=== PATIENT | male | born 1975 | race Caucasian/White ===

== ENCOUNTER 2017-03-11 09:06 | Inpatient (IN) | payer OTHER ==
[~2017-03-11] VITALS: Ht 175.3 cm; Wt 93.2 kg
--- NOTE | ~2017-03-11 | INDIVTXPL2 ---
"PATIENT: ANDRE MOSQUERA | | [facility] UNIT #: [id number] | [address] AGE/SEX: 41 M : 75 | [address] | [place] [address] ADMIT/REG DATE: 03/11/17 | ROOM: [facility] LOC: ADTC | ADTC | Individualized Treatment Plan DATE: 03/18/17 Problem Statement/Issue Identified: Client is experiencing family discord and distancing as a result of past alcohol & drug usage. Goal: To assist client in recognizing the distancing between him and his family due to his drug use. Objectives/Activities to achieve goal: 1. Client will complete a Feelings packet and process insight with counselor and selected pages in group. Due Date: 04/02/17 Complete: Incomplete: 2. Client will write a Feelings letter to his brother and [id number] and process with counselor and in group. family education. Due Date: 04/02/17 Complete: Incomplete: 3. Client will attend family education with his brother learning about the disease concept and family roles and share what he learned with his counselor. Due Date: 04/02/17 Complete: Incomplete: Client Signature Date Counselor Signaure: Date Outcome/Measurement of Progress Towards Goal: Counselor Signature: Date "
--- NOTE | ~2017-03-11 | INDIVTXPL2 ---
"PATIENT: ANDRE MOSQUERA | | [facility] UNIT #: [id number] | [address] AGE/SEX: 41 M : 75 | [address] | [place] [address] ADMIT/REG DATE: 03/11/17 | ROOM: [facility] LOC: ADTC | ADTC | Individualized Treatment Plan DATE: 03/18/17 Problem Statement/Issue Identified: Client needs to become familiar with basics of recovery as he/she is new to treatment and Twelve Step Program. Goal: To assist client in gaining a better knowledge of his powerlessness over his disease. Objectives/Activities to achieve goal: 1. Client is to complete his Getting Started in Treatment packet where he will identify specific events and behaviors that have contributed to his decision to seek treatment and how his addiction has progressed over the years which he will share with his counselor and selected pages in group. Due Date: 03/23/17 Complete: Incomplete: 2. Client will complete Step 1, which will identify core values he has compromised in his addiction and share with his counselor and selected pages in group. Due Date: 03/23/17 Complete: Incomplete: 3. Client is to attend AA/NA meetings, ask for and get at least 5 names and numbers of men in recovery, helping him build a support system and gain a possible sponsor, and share that list with his sponsor. Due Date: Complete: Incomplete: Client Signature Date Counselor Signaure: Date Outcome/Measurement of Progress Towards Goal: Counselor Signature: Date "
--- NOTE | ~2017-03-11 | TXPLANREV ---
"PATIENT: ANDRE MOSQUERA | | [facility] UNIT #: [id number] | [address] AGE/SEX: 41 M : 75 | [address] | [place] [address] ADMIT/REG DATE: 03/11/17 | ROOM: [facility] LOC: ADTC | ADTC | Treatment Plan/Staffing Review Date: 04/01/17 Treatment plan was reviewed and determined appropriate as written: yes Treatment plan was reviewed and the following changes/addition/deletions are necessary: Client was assigned Shame Faced and Relapse Prevention Discharge plans were reviewed and determined appropriate as previously documented: yes Discharge plans were reviewed and determined to be as follows: Client will be going back to [place] and possibly living with his brother. He will return to [facility] for counseling. Other pertinent issues discussed during this staffing review include: None Staff Present: Kun Logan PRIMARY COUNSELOR: Mariela Chang Client Signature Counselor Signature Date Time "
--- NOTE | ~2017-03-11 | TXPLANREV ---
"PATIENT: ANDRE MOSQUERA | | [facility] UNIT #: [id number] | [address] AGE/SEX: 41 M : 75 | [address] | [place] [address] ADMIT/REG DATE: 03/11/17 | ROOM: [facility] LOC: ADTC | ADTC | Treatment Plan/Staffing Review Date: 03/25/17 Treatment plan was reviewed and determined appropriate as written: yes Treatment plan was reviewed and the following changes/addition/deletions are necessary: Client was given a Feelings packet and assigned feelings letter to his brother. Client was also given the booklet I Can't Be Addicted Because..... Discharge plans were reviewed and determined appropriate as previously documented: yes Discharge plans were reviewed and determined to be as follows: Client has filled out applications and signed release forms for [email or web address], and [facility]. Other pertinent issues discussed during this staffing review include: None Staff Present: Deb Gomez Lori C PRIMARY COUNSELOR: Mariela Chang Client Signature Counselor Signature Date Time "
--- NOTE | ~2017-03-11 | CLPRLASSUM ---
"PATIENT: ANDRE MOSQUERA | | [facility] UNIT #: [id number] | [address] AGE/SEX: 41 M : 75 | [address] | [place] [address] ADMIT/REG DATE: 03/11/17 | ROOM: [facility] LOC: ADTC | ADTC | Client Problem List/Assessment Summary Date: 03/18/17 Problems identified by the client: his drug use became unmanageable which led him to being placed on probation. Problems identified by significant others: n/a Client's Strengths: hardworker, kind, Problem List: Code: T Client needs to become familiar with basics of recovery as he is new to treatment and Twelve Step Program. Code: T Client is experiencing family discord and distancing as a result of past alcohol & drug usage. Code: T Client is easily influenced by peers and needs to learn to take a stand for responsible behavior to avoid relapse. Code: T Client needs to identify relapse warning signs and develop a plan to deal with them as they arise. Code [place]: T: to be addressed during course of treatment O: problem noted, expected to resolve itself with abstinence--specific tx plan not required R: problem noted, will be referred upon discharge PRIMARY COUNSELOR: Mariela Chang"
--- NOTE | ~2017-03-11 | RESCARESUM ---
"PATIENT: ANDRE MOSQUERA | | [facility] UNIT #: [id number] | [address] AGE/SEX: 41 M : 75 | [address] | [place] [address] ADMIT/REG DATE: 03/11/17 | ROOM: [facility] LOC: ADTC | ADT | Summary of Residential Care Primary [facility] Date of Admission: 03/12/17 Date of Discharge: 04/13/17 Referral Source: probation Primary Care Provider Prior to Admission: self Admitting Diagnosis: F12.20 Cannabis Use Disorder, severe; F15.20 Stimulant Use Disorder, mild; F17.20 Nicotine Dependence; Chemical-Induced mood disorder all per history and physical. Discharge Diagnosis: same as above Goals Achieved: Client verbalized understanding of the severity of his powerlessness and unmanageability related to his substance use. He practiced identifying and appropriately expressing his feelings. Client began to work on relapse and prevention plan. Continued Obstacles to Sobriety/Relapse Issues: Client goes back and forth with thinking that he may have a drug and alcohol problem and that he does not have any problems with any type of substance. Client is mostly concerned about not having a family or at his age. Family Issues Addressed: Client's brother attended a night of family education and client attended Thursday night of education. Y Individual Therapy Y Group Therapy Y Educational Series on Substance Abuse Y Parents/Significant Others Attended Family Program N Acute Medical Problems During the Course of Treatment N Transferred to Hospital During the Course of Treatment T Accepting of Substance Abuse Problem N Non-accepting of Substance Abuse Problem N Required Psychological or Psychiatric Consultation During the Course of Treatment Completed AA Step # 1 During This Level of Care Significant Incidences During Treatment: None Reason For Discharge: Y Completed Residential TX Goals and Ready For Next Level of Care N Left Tx Against Medical Advice/Treatment Goals Not Complete N Completed Residential Tx Goals But Refusing Continuing Care Recommendations N Discharged Due to Noncompliance/Treatment Goals not Completed N Discharged Earlier Than Planned Due to: PATIENT: ANDRE MOSQUERA | | [facility] UNIT #: [id number] | [address] AGE/SEX: 41 M : 75 | [address] | [place] [address] ADMIT/REG DATE: 03/11/17 | ROOM: [facility] LOC: ADTC | ADTC | Summary of Residential Care Continuing Care Plan/Recommendations: N Intensive Partial Care Y Sponsor N Partial Care Y AA Meetings/NA Meetings Y Outpatient N Co-dependency Services N Therapeutic Community Y [facility] [facility] [address] N Mental Health Therapy N Marriage Counseling N Other Specific Continuing Care Plan: It is recommended that client check into [facility] at discharge and follow all rules and regulations of the house. Client should attend individual counseling at the [facility] and all scheduled activites and groups. Client is recommended to attend 3-4 NA/AA meetings and work a strong program in recovery. PRIMARY COUNSELOR: Mariela Chang"
--- NOTE | 2017-03-11 09:53 | NUR ---
Gus notes: Client is working on Selfworth and mtg with catherine
--- NOTE | 2017-03-11 11:04 | NUR ---
ADMISSION NOTE Rights/Responsibilities: Copy given and explained to client. Signed and accepted by client. Client oriented to physical lay out of the ADTC unit, given Big Book and admission packet. A Trevor was assigned. Kevin Berry Client is a 41yr old single male. Brought to and reffered to tx by attorny. Lives in [place], [place]. DOC, Cannabis, last used 10/17, 3 bowls daily. No allergies, No meds. No family participation. Was searched no contraband found. Initial paperwork given and guidelines gone over. Doctor has been notified.
--- NOTE | 2017-03-11 17:35 | NUR ---
SPIRITUAL EDUCATION 1 HR. Today we used music to invoke discussion, symbolize how it can be either positive spirituality or negative spirituality, and discussed the feelings. We used one song that depicted addiction, one that talked about recovery, and since we are close to Mother's Day, one that depicted addiction in parents and forgiveness.
--- NOTE | 2017-03-11 18:17 | NUR ---
Education: 1 Hour. Client attended "Boudaries" lecture given by staff.
--- NOTE | 2017-03-11 22:55 | NUR ---
Tech Note: Client played a game for rec, and attended The on unit N.A.Meeting. SE: Getting into treatment today
--- NOTE | 2017-03-12 04:29 | NUR ---
Bed Note: Client was in bed with eyes closed and motionless at all bed checks.
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
--- NOTE | 2017-03-12 15:55 | NUR ---
step education 1 hr/ Focus was on step 3 of the 12 steps Made a decision to turn our will and lives over to God. Each person were given questions to answer on paper and then to share and discuss. This client participated.
--- NOTE | 2017-03-12 17:00 | NUR ---
Individual Therapy, 1.0 hours, This session focused on orienting client to how treatment works. Client was welcomed and asked to explain the chain of events that led him to residential treatment. Client was advised he will see his counselor twice a week, is required to attend all programming and be on time, discussed family participation and signed release forms, explained visiting hours and no phone privileges for the first week, explained to wave at the [facility] if awake during bed check, and reviewed his initial treatment plan.
--- NOTE | 2017-03-12 18:16 | NUR ---
Education 1HR: Clt watched video called "Predator part 1" by Bebeto Jones with staff present.
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
--- NOTE | 2017-03-12 19:13 | NUR ---
Family Note: Brother was contacted and given information about family and also visiting hours.
--- NOTE | 2017-03-12 23:09 | NUR ---
Tech Note: Client took a walk for rec and attended the A.A.Meeting. Client was seen by doctor. SE: Group
--- NOTE | 2017-03-12 23:23 | NUR ---
1:00 pm. Education Note: Client watched video "Inside the Addictive Personality"
--- NOTE | 2017-03-13 04:08 | NUR ---
Bed Note: Client was in bed and motionless at all bed checks.
--- NOTE | 2017-03-13 11:53 | NUR ---
Group 1.5 hr Ratio 1:10/Topics today were Orientation a new client to group rules and goals, a con game packet and a letter to a family member. Client shared how he could relate and he thinks he is different than others in that he thinks he has to help others to feel good about his self.
--- NOTE | 2017-03-13 14:35 | NUR ---
PEER REVIEWS 1.5 HRS: Clt participated in peer review process and was able to give open and honest feedback to those receiving a review.
--- NOTE | 2017-03-13 15:40 | NUR ---
Tech Note: Client participated in group walk and watched "Marijuana" by Bebeto Jones. Assignment being worked on is Step 1.
--- NOTE | 2017-03-13 23:21 | NUR ---
Tech note: Client played games and watched movies. Client made a phone call to his brother.
--- NOTE | 2017-03-14 04:02 | NUR ---
Bed note: Client was in bed with eyes closed and no distress at all bed checks
--- NOTE | 2017-03-14 16:51 | NUR ---
Tech Note: Client went to A.A.Meeting at [address]. Client missed morning meditation. Client is working on Step one and journaling
--- NOTE | 2017-03-14 22:05 | NUR ---
Tech note: Client's were just starting to grill around 6pm so we did not have rec this evening. Client walked to an offsite AA meeting, played games and watched movies. SE; Nap
--- NOTE | 2017-03-15 04:45 | NUR ---
tech note: client was motionless in no distress at all bed checks.
--- NOTE | 2017-03-15 17:35 | NUR ---
Tech Note: Client participated in Big Book study. Client stated that he is working on journaling. Client received a visitor.
--- NOTE | 2017-03-15 23:28 | NUR ---
tech note: Client participated in community clean & attended [facility] meeting. Client watched tv. SE: visits & food.
--- NOTE | 2017-03-16 04:24 | NUR ---
tech note: client was motionless in no distress at all bed checks.
--- NOTE | 2017-03-16 11:30 | NUR ---
Experiential Group 1.5 hr/ Clients all participated in looking at family dynamics and feelings through sculpturing and participated with feedback, relating and/or role-playing. This client seemed to relate to a mom that was never there/didn't know her.
--- NOTE | 2017-03-16 17:48 | NUR ---
Tech Note: Client went for an outdoor walk in the afternoon. Client stated that he is working on Step One and writing feelings letters.
--- NOTE | 2017-03-16 20:47 | NUR ---
Education 1 HR: Clt listened to lecture given by counselor on communication.
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
--- NOTE | 2017-03-16 23:10 | NUR ---
Client was in family SE: Family
--- NOTE | 2017-03-17 04:58 | NUR ---
Bed Note: Client was in bed and motionless at all bed checks
--- NOTE | 2017-03-17 11:27 | NUR ---
GROUP 1.5 HRS. 1:11 Client participated in orienting new peer to purpose and rules of group. Group discussion included the progression of the addiction and the effects on family and lives including suicide attempts. Peer processed goodbye letter to addiction and discussed the need to end the relationship.
--- NOTE | 2017-03-17 15:13 | NUR ---
Tech Note: Client joined group for afternoon walk, listened to speaker from the [facility] and is working on Feelings Letters.
--- NOTE | 2017-03-17 16:04 | NUR ---
Tech Note: Client attended Relapse Prevention education with Deb.
--- NOTE | 2017-03-17 19:55 | NUR ---
Education: 1 hour lecture on STD/AID/HIV gimary by [facility].
--- NOTE | 2017-03-17 22:34 | NUR ---
Tech note : Client worked on [employer] crafts and get well cards. Client participated in guided meditation and went to an onsite AA meeting.
--- NOTE | 2017-03-18 04:15 | NUR ---
Bed note: Client was in bed with eyes closed and no distress at all bed checks
--- NOTE | 2017-03-18 11:14 | NUR ---
Tech Note: Client is working on Feelings Letters.
--- NOTE | 2017-03-18 12:26 | NUR ---
AM GROUP 13:1/1.5 HR: Client and peers heard multiple clients process assignments and issues. Most did offer feedback, asked clarifying questions and shared from their own experiences. This client was mostly quiet, but did relate to a male peer who talked about all the false promises he made to his kids, sometimes knowing as the words left his mouth, that he would not follow through. Client said his mom was like this. Client said the only effort she made to parent, was for his brother. It was obvious that he has issues with his brother.
--- NOTE | 2017-03-18 13:19 | NUR ---
Tech Note: Client walked in the hallways for afternoon exercise.
--- NOTE | 2017-03-18 13:23 | NUR ---
Education One Hour: Client heard from members of the recovery community, who shared their experience, strength and hope.
--- NOTE | 2017-03-18 17:28 | NUR ---
SPIRITUAL EDUCATION 1 HR. Topics today were orienting newcomers and then broke into groups and did presentations on their sections from [employer] SPIRITUAL[employer].
--- NOTE | 2017-03-18 18:47 | NUR ---
Education: 1 hour lecture given by counselor on "Disease concept".
--- NOTE | 2017-03-18 20:54 | NUR ---
Individual Therapy, 1.0 hours, This session focused on developing clients problems needs list along with signing releases to the [place] [place] [facility] [place] [facility].
--- NOTE | 2017-03-18 22:29 | NUR ---
Tech note: Client played catch phrase for rec and attended an onsite NA meeting. SE: All day
--- NOTE | 2017-03-19 05:00 | NUR ---
Bed note: Client was in bed with eyes closed and no distress at all bed checks.
--- NOTE | 2017-03-19 10:44 | NUR ---
Tech Note; Client participated in light stretching for morning exercise. Client stated that he is working on, "Spirituality" and Step One.
--- NOTE | 2017-03-19 12:39 | NUR ---
Group 1.5 Hr Ratio 1:11/Topics today were feelings letters, a good bye letter to addiction and a couple getting started packets. Client shared his GS packet and did a good job but had to behighly encouraged to do it. Client shared some tough stuff and his self esteem is next to nothing. Encouraged client to do EMDR.
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
--- NOTE | 2017-03-19 16:12 | NUR ---
Step Education 1 hr/Focus was on step 4 making a searching and fearless moral inventory of ourselves. Handed out some questions each person answered on paper and then we discussed. This person participated.
--- NOTE | 2017-03-19 16:20 | NUR ---
Education 1 Hour: Client heard from two members of the recovery community, who shared their experience strength and hope.
--- NOTE | 2017-03-19 20:24 | NUR ---
Education: 1 Hour. Client attended Kevin Penny "Unhealthy Families" video.
--- NOTE | 2017-03-19 22:59 | NUR ---
Client went on a walk for rec, participated in guided meditation, and attended the on unit A.A.Meeting. Client left A.A.Meeting before it was over. He was redirected not to leave meetings. He said he had to go to restroom. : Jazmine
--- NOTE | 2017-03-20 05:35 | NUR ---
tech note: client waved at tech at first bedcheck,client was motionless in no distress at remaining bed checks.
--- NOTE | 2017-03-20 14:00 | NUR ---
Individual Therapy, 1.0 hours, This session focused on review of clients BPS and Getting Started Packet. Client shared that he thinks this treatment will help him and his brother get closer together. Client shared that he usually gets into trouble when he helps others out before making sure he is ok. Client was given Step 1 and a Feelings packet.
--- NOTE | 2017-03-20 14:48 | NUR ---
Tech Note: Client joined our group walk for exercise. Watched video titled "Sound of Silence" and is working on Step 1, Feelings Letters and Spirituality.
--- NOTE | 2017-03-20 15:42 | NUR ---
Group 1.5 hr/ 12:1 Clients heard peers share GS and Step 1 packets, this client was attentive and gave some feedback.
--- NOTE | 2017-03-20 20:30 | NUR ---
TECH NOTE: Client participated in reading of guidelines, watched TV/movies SE: the rain
--- NOTE | 2017-03-21 04:31 | NUR ---
BED NOTE: Client was in bed, motionless with eyes closed all bed checks.
--- NOTE | 2017-03-21 16:19 | NUR ---
Tech Note: Client is working on Spirituality, Vent Letter and Step 1.
--- NOTE | 2017-03-21 20:23 | NUR ---
Tech note: Clt played a game for recreation and attended offsite AA mtg. Clt watched movies and used phone. SE was movie
--- NOTE | 2017-03-22 04:25 | NUR ---
BED NOTE: Client was in bed motionless with eyes closed all three bed checks. Client came out for water at 1:30
--- NOTE | 2017-03-22 15:51 | NUR ---
Tech Note: Client participated in Big Book study. Client stated that he is working on, "Spirituality," and writing feelings letters.
--- NOTE | 2017-03-22 23:03 | NUR ---
Tech Note: Client attended the A.A.Panel with Wei Nichols SE: Tori
--- NOTE | 2017-03-23 04:38 | NUR ---
Bed Note: Client was laying in bed and motionless at all bed checks.
--- NOTE | 2017-03-23 09:48 | NUR ---
Tech note: Client is working on Step 1 and Spirtuality, mtg with with ctaherine
--- NOTE | 2017-03-23 12:55 | NUR ---
Education Note: Clients attended speaker for education Kit J.
--- NOTE | 2017-03-23 15:54 | NUR ---
PEER REVIEWS 1.25 HRS: Clt participated in peer reviews and took a risk to give open and honest feedback to those receiving a review.
--- NOTE | 2017-03-23 17:17 | NUR ---
I.S. 1 Hr/Client preseented for EMDR safe place but decided he did not want to do it but was looking for a magic way to feel good about his self. encouraged him to use positive affirmations and trust the process. Also gratitude list to focus on positive things. Helped him see he can walk, has clothes and does not need oxygen to breathe. Also suggested to read the chapter on acceptance client really fills marilyn for his self and keeps draging his childhood with him. Time to unhitch from it.
--- NOTE | 2017-03-23 18:19 | NUR ---
Education: 1 Hour. Client attended "Feelings" lecture presented by staff.
--- NOTE | 2017-03-23 23:16 | NUR ---
tech note: client played Catch Phrase for recreation & attended onsite NA meeting. SE: All day.
--- NOTE | 2017-03-24 04:46 | NUR ---
tech note: client was motionless in no distress at all bed checks.
--- NOTE | 2017-03-24 14:59 | NUR ---
A.M. 1.5 hr group/ratio 11/12/ Group heard a step 1, how to get started, grief letter and discussed the importants of not glorifying as one client was confronted on this. This client was told to put his notebook down as he was looking at it when others were sharing. He did relate to a peer.
--- NOTE | 2017-03-24 15:00 | NUR ---
Individual Therapy, 1.0 hours, This session focused on review of clients Feelings packet. Client was asked about why his Step 1 was not finished and client shared none of it pertained to him because he is the same person whether he is using drugs or not. Client shared his main problem was using marijuana to calm himself down. Client was asked why he needed substances in his life and why was he on probation. Client states he does not think that he has a problem and that most of the reason he is in trouble is due to letting others into his life who take advantage of. Client was asked to take a look at what types of people he is helping and why he is letting them into his life.
--- NOTE | 2017-03-24 15:39 | NUR ---
Relapse Prevention, 1.0 hours, Client attended and actively participated in relapse prevention education which focused on compulsive behaviors and relapse.
--- NOTE | 2017-03-24 16:09 | NUR ---
Tech Note: Client watched Part 2 of Predator by Bebeto Jones and had Relapse Prevention for 3:00 education. Assignment being worked on: Big Book.
--- NOTE | 2017-03-24 16:23 | NUR ---
Education Note: Client attended Relapse Prevention presented by counselor Mariela.
--- NOTE | 2017-03-24 20:17 | NUR ---
Education: 1 hour lecture given by counselor on relapse.
--- NOTE | 2017-03-24 20:26 | NUR ---
tech note: Client went for walk for rec, participated in guided meditation and attended AA meeting
--- NOTE | 2017-03-24 23:35 | NUR ---
Tech Note: Client went on a walk for rec and attended the on unit A.A.Meeting. Client participated in Guided Meditation at 1930. SE: All Day
--- NOTE | 2017-03-25 04:55 | NUR ---
Bed note: client was in bed with eyes closed and no distress at all bed checks.
--- NOTE | 2017-03-25 10:20 | NUR ---
Tech notes: Client is working on BB
--- NOTE | 2017-03-25 11:30 | NUR ---
BIG GROUP 4:21 Group was brought together to discuss issues of old behaviors, treatment relationships and other violations of guidlines that are being kept secret. All were encouraged to look at the difficulty they have confronting with assertiveness, rather than passive/aggressive. This client was one that was mentioned as spending excessive amount of time with female peer CL.
--- NOTE | 2017-03-25 13:48 | NUR ---
Educational note: Client watched a video for education.
--- NOTE | 2017-03-25 17:19 | NUR ---
SPIRITUaL EDUCATION 1 HR. Clients were oriented to the group and learned difference between spirituality and mormonism. We addressed GRATITUDE today with discussion, worksheet and activity.
--- NOTE | 2017-03-25 18:23 | NUR ---
Education: 1 Hour. Client attended "Self Esteem" lecture presented by staff.
--- NOTE | 2017-03-25 23:22 | NUR ---
tech note: client went on a walk for recreation & attended the onsite NA meeting. SE: All day.
--- NOTE | 2017-03-26 05:11 | NUR ---
Bed Note: Clt lay motionless in bed with eyes closed showing no distress at all bed checks.
--- NOTE | 2017-03-26 11:16 | NUR ---
Tech Note: Client participated in Spiritual Enrichment. Client stated that he is working on reading the Big Book.
--- NOTE | 2017-03-26 11:52 | NUR ---
Group 1.5 Hr Ratio 1:10/Topics today were two step ones, two Gettings started packets andtwo feelings letters. Client shared feedback as to how he could relate to what peers were sharing from assignments.
--- NOTE | 2017-03-26 16:51 | NUR ---
FAMILY EDUCATION 3 HRS. Client attended alone and took part in the discussion on the disease concept. Client shared consequences of his addiction.
--- NOTE | 2017-03-26 19:15 | NUR ---
Education 1 Hour: Client heard a presentation on marijuana.
--- NOTE | 2017-03-26 22:11 | NUR ---
Education 1 HR: Clt watched video by Hemalatha "Latoya Butler" with staff present.
--- NOTE | 2017-03-26 22:35 | NUR ---
Tech Note: Clt walked for recreation, attended GM and onsite AA mtg. Late to . SE was family
--- NOTE | 2017-03-27 04:45 | NUR ---
Bed Note: Clt lay motionless in bed with eyes closed showing no distress at all bed checks.
--- NOTE | 2017-03-27 11:30 | NUR ---
Group 1.5 hr/ 11:1 Clients all heard peers share in discussion about when is it addiction with loss of control or being a "functional addict" as peer asked questions. Also they introduced self to newcomer. This client was the one that asked for groups feedback as he feels he is functioning addict. Counselor asked to see his step 1 and he didn't have any examples of powerlessness. Client shared about relationships, being used, blowing money from settlement so confronted that he lacks boundaries with others which was worse due to his addiction. He couldn't disagree with that. He shared he hasn't been happy since age 6, am learning boundaries, would always try to buy friendships. Says parents told him he was a "Piece of Shit since age 6" so believed it. Counselor gave him Shame Faced to read following group. Peer said he has major abandonment issues and lets people use him. (client had commented he doesn't drink to get drunk, 1x/month handles it)
--- NOTE | 2017-03-27 15:57 | NUR ---
PEER REVIEWS 1.25 HRS: Clt participated in peer reviews and took a risk to give open and honest feedback to those receiving a review.
--- NOTE | 2017-03-27 16:20 | NUR ---
Tech Note: Client listened to speaker Alton Gallagher and is working on the Big Book.
--- NOTE | 2017-03-27 20:53 | NUR ---
Tech note: client watched TV and movies. SE:all day
--- NOTE | 2017-03-28 04:59 | NUR ---
Bed note: Client was in bed with eyes closed and no distress at all bed checks.
--- NOTE | 2017-03-28 16:51 | NUR ---
Tech Note: Client attended the A.A.Meeting at [facility] and [place] and is working on [employer] Client was also supposed to have a visit with the [facility].
--- NOTE | 2017-03-28 22:53 | NUR ---
Tech note: Client walked around the park a few times for rec. Client walked to an off site AA meeting. SE: Family
--- NOTE | 2017-03-29 05:01 | NUR ---
Bed note: client was in bed with eyes closed and no distress at all bed checks.
--- NOTE | 2017-03-29 15:30 | NUR ---
TECH NOTE: Client participated in big book study, attended study time, completed chores and watched tv/movies.
--- NOTE | 2017-03-29 23:27 | NUR ---
tech note: Client participated in Community Clean. Client attended DENTAL CHAIRSIDE ASSISTANT,talked on the phone & played cards. SE: Interview with Rosi Byers.
--- NOTE | 2017-03-30 04:45 | NUR ---
Bed note: client was in bed with eyes closed and no distress at all bed checks.
--- NOTE | 2017-03-30 15:16 | NUR ---
Tech note: Client is working on Shame Face
--- NOTE | 2017-03-30 22:57 | NUR ---
Tech Note: Clt walked for recreation and attended onsite NA mtg. Clt used phone and watched movies. SE was phone calls about brother's baby
--- NOTE | 2017-03-31 04:44 | NUR ---
Bed Note: Clt lay motionless in bed with eyes closed showing no distress at all bed checks.
--- NOTE | 2017-03-31 11:30 | NUR ---
Morning Group, /8 ratio, 1.5 hours, Client attended and actively participated in group discussion. Client shared how he could relate to his jose luis thinkin booklet.
--- NOTE | 2017-03-31 15:37 | NUR ---
Tech Note: Client participated in light stretching for morning exercise and went on an outdoor walk in the afternoon. Client stated that he is working on, "Keep it Simple" and "Shame Faced."
--- NOTE | 2017-03-31 15:48 | NUR ---
Education 1 Hour: Client watched the video, "How to Sabotage your Treatment."
--- NOTE | 2017-03-31 23:03 | NUR ---
Tech note: Client walked a mile for rec, did guided meditation and attended an onsite AA meeting. SE; All day
--- NOTE | 2017-04-01 04:23 | NUR ---
Education: 1 Hour. Client attended presentation by staff on "Step 1."
--- NOTE | 2017-04-01 05:15 | NUR ---
Bed note: Client was in bed with eyes closed and in no apparent distress at all bed checks.
--- NOTE | 2017-04-01 09:41 | NUR ---
Gus notes: Client is working on Voices and mtg with catherine
--- NOTE | 2017-04-01 11:49 | NUR ---
AM GROUP 9:1/1.5 HR: Client and peers ORIENTED A NEW MEMBER TO GROUP PURPOSE, GUIDELINES, GOALS AND OBJECTIVES. Client appeared somewhat sarcastic and cocky initially, mumbling under his breath and then stating that he wanted to be in the other group. Client heard that this was not an option at this point and seemed to settle down. He was otherwise quiet but attentive as others processed assignments and issues.
--- NOTE | 2017-04-01 13:30 | NUR ---
Education note: Client attend educational speaker Maira Berry
--- NOTE | 2017-04-01 15:00 | NUR ---
Individual Therapy, 1.0 hours, This session focused on clients reveiw of the booklet "I can't be an addict because..." Client shared that he does not need alcohol and drugs and can either take it or leave it and his biggest problem was that he was 42 years old and alone. Client was asked what he could offer somebody at this time. He stated he works all of the time and that he could financially take care of another person. It was brought to the clients attention that working all the time could be an addiction as well. He explained that since he had been homeless before he never wanted to be homeless again. When asked if he ever got tired from working 7 days a week for at least 10 hours he stated that he didn't get tired and when he did he turned to using meth. Client then saw how his over working can cause him to relapse. Client shared he will never be an alcoholic because that is what his dad was and he will never be like his dad. Client was asked to write down what exactly he would want in a relationship and bring it to his next session.
--- NOTE | 2017-04-01 16:27 | NUR ---
SPIRITUAL EDUCATION 1 HR. Newcomers were oriented to group. Todays topic was addicted self vs spiritual self which we discussed first then they depicted the contrast in artwork. The ones that finished first wrote letters to welcome anonymous newcomers.
--- NOTE | 2017-04-01 22:32 | NUR ---
Tech note : Client played catch phrase for rec and attended an onsite NA meeting. SE; All day
--- NOTE | 2017-04-01 22:49 | NUR ---
Tech note: Client played cathch phrase for rec, he met with his counselor during NA so he did not attend the meeting. SE; All day
--- NOTE | 2017-04-02 04:42 | NUR ---
Bed note: client was in bed with eyes closed and no distress at all bed checks.
--- NOTE | 2017-04-02 10:48 | NUR ---
Tech Note : Client participated in Spiritual Enrichment. Client stated that he is working on, "Denial," "Self-talk" and "How Not to be a Traitor."
--- NOTE | 2017-04-02 11:30 | NUR ---
Group 1.5 hrs. Ratio 1:9/ Topics were orientation for new clients to group, rules and goals. One client shared feeling packet.others gave feed back and other feelings were discussed. Client shared feeling packet.Shared that he stuffs his feelings. Anger is a feeling that he is stuffing the most. Shared that when he is not working he just spends time home relaxing. Shared that he is working on his feelings and coping skills.
--- NOTE | 2017-04-02 13:10 | NUR ---
Education 1 Hour: Client heard a recovery speaker who addressed the subject of hope.
--- NOTE | 2017-04-02 17:08 | NUR ---
Step education/1 hr/ Focus was on step 7 of the 12 steps "Humbly asked him to remove shortcomings", and each person completed a set of questions on paper and then discussed. This client participated .
--- NOTE | 2017-04-02 20:35 | NUR ---
Education: 1 Hour. Client attended Kingsley Castrejon video "Step 5."
--- NOTE | 2017-04-02 22:57 | NUR ---
Client went on a walk for rec, participated in guided meditation, and attended the on unit A.A.Meeting. SE: A.A.Meeting
--- NOTE | 2017-04-03 05:29 | NUR ---
Bed Note: Client was in bed and motionless at all bed checks.
--- NOTE | 2017-04-03 11:30 | NUR ---
PEER REVIEWS 1.5 HRS: Clt participated in peer review process and received his own. He heard he looks for atention, is insecure, has low self-confidence, isolates, is a people pleaser, shy, quiet, has resentments and is hard of himself. He state he felt glad and ashamed.
--- NOTE | 2017-04-03 12:54 | NUR ---
Group 1.5 Hr Ratio 11/11/Topics today were two Getting Started Packets, talking about when it was discovered when they knew they were addicted and relationships. Client shared how he could relate to peers but likes to hide behind houmr.
--- NOTE | 2017-04-03 14:25 | NUR ---
Tech Note: Client watched Recovery Issues Part 3. Is working on reading the Big Book.
--- NOTE | 2017-04-03 16:36 | NUR ---
Individual Therapy, 1.0 hours, This session focused on review of clients Denial and Self-Titus packet. Client was also given an assignment of making a list of activities he could do without the use of drugs and alcohol. Client shared that he is really wanting to work on being sober so that he could find a nice girlfriend that is not hooked on drugs or alcohol. He shared that when he uses, he is more outgoing and funny. Client also realizes that he needs to balance work and other things in his life.
--- NOTE | 2017-04-03 20:15 | NUR ---
Tech note: Clt read guidelines as a grp, attended optional AA mtg and watched tv/movies. SE was peer review
--- NOTE | 2017-04-04 05:20 | NUR ---
BED NOTE: Client was in bed, motionless with eyes closed all bed checks.
--- NOTE | 2017-04-04 16:49 | NUR ---
Tech Note: Client attended NA Panel today and is working on Relapse Prevention. He had visitors.
--- NOTE | 2017-04-04 20:13 | NUR ---
TECH NOTE: Client participated in beads for REC, attended offsite AA meeting and watched TV/Movies. SE: NA panel
--- NOTE | 2017-04-05 04:55 | NUR ---
Bed Note: Clt lay motionless in bed with eyes closed showing no distress at all bed checks.
--- NOTE | 2017-04-05 16:09 | NUR ---
Tech Note: Client is working on Relapse Prevention.
--- NOTE | 2017-04-05 22:55 | NUR ---
Tech Note: Client attended the on unit A.A.Panel. SE: Sandeep
--- NOTE | 2017-04-06 04:41 | NUR ---
Client was in bed and motionless at all bed checks.
--- NOTE | 2017-04-06 09:55 | NUR ---
Gus notes: Client is working on Relapse prevention and mtg with catherine
--- NOTE | 2017-04-06 11:30 | NUR ---
Group 1.5 hr/ 10:1 Clients did give feedback for 2 peer reviews and then heard 2 peers share GS packets. This client was attentive and offered some feedback and encouraged a peer.
--- NOTE | 2017-04-06 13:36 | NUR ---
Education note: Client attended educational speaker Stacey on Tobacco
--- NOTE | 2017-04-06 16:00 | NUR ---
RECOVERY 101 1 HR/ Clients did read and discuss several topics in the Big Book on HOnesty, 1/2measures, step 3, selfishness, 12 Promises, resentments, acceptance and how changing their attitudes empowers them to have happiness daily. They were given highlighters so the Big Book can become a tool in recovery.
--- NOTE | 2017-04-06 18:17 | NUR ---
EDUCATION 1 HR: Counselor gave lecture on forgiveness.
--- NOTE | 2017-04-06 23:25 | NUR ---
Tech note: Client didn't attend recreation or the onsite NA meeting. Tech went to client's room and found him in bed @ 2145. Client did attend the client meeting. When tech inquired why client was in his room he really didn't have a reason. SE: All Day.
--- NOTE | 2017-04-07 05:37 | NUR ---
BED NOTE: Client was in bed, motionless with eyes closed all bed checks.
--- NOTE | 2017-04-07 11:30 | NUR ---
GROUP 1.5 HRS. 1:11 Client participated in orienting new peers to purpose and rules of group. Peer attempted to process his step 1 assignment to identify 15 values and examples of how he betrayed them but he failed to provide examples and only listed a couple of values. This client was minimally involved by appeared attentive.
--- NOTE | 2017-04-07 15:00 | NUR ---
Family Therapy, 1.0 hours, This session focused on clients relationship with his brother and [id number]. Clients brother was in attendance. Client became defensive when he was asked what part he played in the relationship problems with his [id number]. Clients brother really wants to be a part of his brothers life but client continues to put a barrier up.
--- NOTE | 2017-04-07 15:02 | NUR ---
Relapse Prevention, 1.0 hours, Client attended and actively participated in relapse prevention education which focused on completing a relapse quiz and discussion.
--- NOTE | 2017-04-07 16:28 | NUR ---
Tech Note: Client participated in light stretching for morning exercise and went on an outdoor walk in the afternoon. Client stated that he is working on, "Relapse Prevention" ad reading in the Big Book.
--- NOTE | 2017-04-07 17:22 | NUR ---
Education 1 Hour: Client heard a presentation on Sexually Transmitted Disease.
--- NOTE | 2017-04-07 23:34 | NUR ---
TECH NOTE: Client Attended Alumni meeting, played Catch Phrase for REC, participated in Guided Meditation, and attended AA meeting. Redirected for walking in the sorto during GM and eating a brownie that he took off the meal cart/ SE: REC
--- NOTE | 2017-04-08 04:36 | NUR ---
Bed Note: Client was in bed and motionless at all bed checks.
--- NOTE | 2017-04-08 11:00 | NUR ---
Tech Notes: Client is working on BB
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
--- NOTE | 2017-04-08 12:52 | NUR ---
Education Note: Client attended education by [facility]
--- NOTE | 2017-04-08 18:20 | NUR ---
EDUCATION 1HR: Counselor gave presentation on Unresolved Anger.
--- NOTE | 2017-04-08 18:55 | NUR ---
SPIRITUAL EDUCATION 1 HR. ORIENTED NEWCOMERS, AND TODAYS TOPIC WAS THE SPIRITUAL QUESTION GAME DESIGNED TO START PEOPLE THINKING ALONG SPIRITUAL LINES AND GET MORE COMFORTABLE DISCUSSING IT.
--- NOTE | 2017-04-08 22:26 | NUR ---
TECH NOTE: Client went on a walk for REC and attended NA meeting. SE: spirituality
--- NOTE | 2017-04-09 04:49 | NUR ---
BED NOTE: Client was in bed, motionless with eyes closed all three bed checks.
--- NOTE | 2017-04-09 11:30 | NUR ---
Morning group: 1:10: 1.5 hrs. Clt attended and actively participated ingroup discussion. When 1st clt voiced being in his head and thinkin of everything going on is his life this clt told him that it helps to just talk to others. Helping others also helps fill the void feelilng. Keyona Vasquez, student
--- NOTE | 2017-04-09 13:59 | NUR ---
Tech Note: Ana went on walk, watched "How to Sabotage Your Treatment" and is working on the Big Book.
--- NOTE | 2017-04-09 16:11 | NUR ---
Step education 1 hr/ Focus of education was on step 8 making amends. Each person wrote down answers of a set of questions on step 8 and then we discussed. This person participated and on the question do I have a relationship that needs healing? He said yes with his mother who wants nothing to do with him.
--- NOTE | 2017-04-09 19:56 | NUR ---
Education Note 1 HR: Clt watched video by Bebeto Jones entitled "My Attitude".
--- NOTE | 2017-04-09 22:55 | NUR ---
Tech Note: Client Participated in guided meditation and attended the on site A.A.Meeting. Client played a game for rec. SE: Group
--- NOTE | 2017-04-10 05:03 | NUR ---
Bed Note: Client was in bed and motionless at all bed checks.
--- NOTE | 2017-04-10 13:00 | NUR ---
Group 1.5 Hr Ratio 1:10/Topics today were a getting Started packet and talked about denial about being an alcoholic. Client shared how he does not see he is an alcoholic as a peer sharedthe same thing and was on the verge of resscuing peer. Client had a lot of poor me syndrome as he should not have gotten in trouble for helping others even if they were using needles or creating a meth lab in his garage.
--- NOTE | 2017-04-10 13:28 | NUR ---
Tech Note: Clt joined group on outside walk and watched "Marijuana" by Bebeto Jones. Clt is working on reading the Scout Book.
--- NOTE | 2017-04-10 15:31 | NUR ---
Individual Therapy, 1.0 hours, This session focused on clients discharge and any worries he has about going to the [facility]. Client states he was really thankful for treatment and although he still feels that he does not have a problem with drugs or alcohol he has learned a lot while here. Client also talked about his brother and his relationship and how he feels that he needs to back away from this so he doesn't cause any problems.
--- NOTE | 2017-04-10 21:10 | NUR ---
Tech Note: Clt read guidelines with grp, used phone and watched movies. SE was graduation coin
--- NOTE | 2017-04-10 23:08 | NUR ---
Tech note: Client played games and watched movies. SE: Graduation coin
--- NOTE | 2017-04-11 04:06 | NUR ---
Bed Note: Clt lay motionless in bed with eyes closed showing no distress at all bed checks.
--- NOTE | 2017-04-11 11:37 | NUR ---
Client missed Thursday education, was late and got locked out.
--- NOTE | 2017-04-11 16:37 | NUR ---
Tech Note: Client attended A.A.Meeting at [facility] and [place] and is working on [employer]. Client also had a visit today.
--- NOTE | 2017-04-11 23:33 | NUR ---
Tech note: Client played catch phase for rec, had cake to celebrate a peers birthday and walked to an offsite AA meeting. SE: All day
--- NOTE | 2017-04-12 04:37 | NUR ---
tech note: client was motionless in no distress at all bed checks.
--- NOTE | 2017-04-12 16:22 | NUR ---
Tech Note: Client working on reading the Big Book.
--- NOTE | 2017-04-12 22:32 | NUR ---
TECH NOTE: Client attended AA panel speaker, participated in community clean and watched TV/movies. SE: last day
--- NOTE | 2017-04-13 05:34 | NUR ---
tech note: client was motionless in no distress at first and third bed check. Client was awake at second bed check.
--- NOTE | 2017-04-13 10:22 | NUR ---
DISCHARGE NOTE Client left tx with ride from the [facility], all personal belongings were sent with. Discharge instructions gone over and copy given.
--- NOTE | 2017-06-03 13:37 | DS ---
ADMIT: 03/11/2017 RM/LOC: [facility] MR#: [id number] [address] ANDRE MOSQUERA [address] [place] [address] General Discharge Summary SEX: M AGE: 41 : 1975 ADMISSION DATE: 03/11/2017 DISCHARGE DATE: 04/13/2017 ADMITTING DIAGNOSIS: As per history and physical. FINAL DIAGNOSES: 1. Cannabis use disorder, severe. 2. Methamphetamine/stimulant use disorder, severe. 3. Alcohol use disorder, mild. 4. Tobacco use disorder. 5. Chemical-induced mood disorder. COMPLICATIONS: None. OPERATIONS: None. CLINICAL HISTORY: The patient is a 42-year-old white male, from [place], [place], admitted to the residential care program for treatment of his cannabis use disorder, methamphetamine use disorder, and alcohol use disorder. For details of his pattern of usage and problems associated with his ongoing substance abuse and chemical dependency, please see clinical history portion of the dictated history and physical. Please also see dictated history and physical for pertinent findings on physical exam as well as his past medical history. LABORATORY AND X-RAY SUMMARY: From this admission, none indicated and none performed. HOSPITAL COURSE: The patient was admitted to the residential care program on 03/12/2017, he remained in the treatment program until 04/13/2017. While in treatment, his primary counselor was Mariela Chang. While in treatment, he participated in individual therapy and group therapy. He was also given the educational series on substance abuse and worked on many of these assignments. The patient's brother did attend family education sessions, did attend a family education session with the patient. The patient attended family education and family group sessions. While in treatment, he was accepting of his substance abuse problem. He worked well with the staff in both individual and group settings. He was able to complete step 1 of AA during this level of care. While in treatment, he had no significant medical issues or problems. He was able to verbalize a better understanding of the severity of his addiction. He was able to recognize his powerlessness over drugs and alcohol. He was also able to see how drugs had made his life unmanageable and led to his current legal issues. He worked on relapse prevention and was able to identify obstacles to his long-term sobriety. He ultimately completed his ADMIT: 03/11/2017 RM/LOC: [facility]ime [facility] MR#: [id number] [address] ANDRE MOSQUERA [facility] [place] [address] General Discharge Summary SEX: M AGE: 41 : 1975 residential treatment goals and was felt to be ready for the next level of care. The patient was dismissed to the [facility], [facility]. It was recommended that he reside at the [facility] for 6 to 9 months until dismissed with staff approval and follow their aftercare recovery program there. He was encouraged to attend 3 to 5 AA or NA meetings per week, and maintain daily contact with his sponsor. CONDITION AT DISCHARGE: Outlook to be improved. PROGNOSIS: Outlook to be good if he followed through on the [facility]. His only medication at discharge was [id number] melatonin, to be taken at bedtime to help for his sleep difficulties. Dallas Gasca MD/ eric JOB #: [id number] CC: Dallas Gasca MD, Attending Physician FAMILY PHYSICIAN, Family Physician
== END 2017-04-13 10:26 | disposition home or self-care (01) | DRG 895 ==
LOC: ADTC 09:06
PROVIDERS: ADMIT Family Medicine
PROC: HZ34ZZZ Individual Counseling for Substance Abuse Treatment, Interpersonal (ICD-10-PCS; principal; 2017-03-11)
PROC: HZ43ZZZ Group Counseling for Substance Abuse Treatment, 12-Step (ICD-10-PCS; principal; 2017-03-11)
PROC: HZ63ZZZ Family Counseling for Substance Abuse Treatment (ICD-10-PCS; principal; 2017-03-11)
DX: F12.20 Cannabis dependence, uncomplicated (principal); F15.20 Other stimulant dependence, uncomplicated; F10.10 Alcohol abuse, uncomplicated; F19.24 Other psychoactive substance dependence with psychoactive substance-induced mood disorder; F17.210 Nicotine dependence, cigarettes, uncomplicated; Z65.2 Problems related to release from prison; Z63.72 Alcoholism and drug addiction in family